=== PATIENT | female | born 1960 | race Caucasian/White ===

== ENCOUNTER 2020-11-07 14:22 | Emergency (ER) | payer OTHER ==
[~2020-11-07] VITALS: Ht 165.1 cm; Wt 90.7 kg
[2020-11-07 14:32] VITALS: BP 103/69
[2020-11-07] MEDS ORDERED: HYDROcodone-ACET 10/325MG TAB PO ONE (15:00)
== END 2020-11-07 17:39 | disposition home or self-care (01) ==
LOC: ER 14:22
DX: M79.662 Pain in left lower leg (principal); I10 Essential (primary) hypertension; Z90.49 Acquired absence of other specified parts of digestive tract
CPT/HCPCS: 93971